=== PATIENT | male | born 1960 | race Two or more races ===

== ENCOUNTER 2019-03-10 23:28 | Inpatient (IN) | payer MEDICAID ==
[~2019-03-10] VITALS: Ht 162.6 cm; Wt 64.9 kg
[2019-03-11 01:05] VITALS: BP 140/92
--- NOTE | 2019-03-11 01:15 | NUR ---
ENVIRONMENTAL EDUCATOR ADMITTING NOTES RECEIVED PT VIA EMT DIRECT ADMIT FORM RUDI DALAL IN STABLE CONDITION WITH FAMILY AT BEDSIDE. PT A/O X3 IRISH SPEAKING. RESPIRATIONS EVEN AND UNLABORED WITH NO S/S OF ACUTE DISTRESS OR SOB NOTED. NO COMPLAINTS OF PAIN AT THIS TIME. ORIENTED PT TO UNIT, ROOM, AND STAFF. SAFETY MEASURES IN PLACE WITH BED IN LOWEST LOCKED POSITION WITH SIDE RAILS UP X2. CALL LIGHT WITHIN REACH. WILL CONTINUE TO MONITOR.
[2019-03-11] MEDS ORDERED: FURO20TA4 PO (01:48)
[2019-03-11] MEDS ORDERED: CARV6.252 PO (01:48)
[2019-03-11] MEDS ORDERED: ASPI-1152 PO (01:48)
[2019-03-11] MEDS ORDERED: DIGO250T PO (01:48)
[2019-03-11] MEDS ORDERED: METF-442 PO (01:48)
[2019-03-11] MEDS ORDERED: IV NS 0.9% 1,000 ML IV PRN (02:47)
[2019-03-11] MEDS ORDERED: MAG HYDROX/AL HYDROX/SIMETH 30 ML UDC PO PRN (03:00)
[2019-03-11] MEDS: ENOXAPARIN SODIUM 40 MG/0.4 ML DISP.SYRIN SQ SCH (03:00)
[2019-03-11] MEDS ORDERED: DEXTROSE 50%-WATER 50 ML DISP.SYRIN IV PRN (03:00)
[2019-03-11] MEDS ORDERED: HYDROCODONE/APAP 5/325MG 1 EACH TABLET PO PRN (03:00)
[2019-03-11] MEDS ORDERED: ONDANSETRON HCL/PF 4 MG/2 ML VIAL IVP PRN (03:00)
[2019-03-11] MEDS ORDERED: MAGNESIUM HYDROXIDE 30 ML UDC PO PRN (03:00)
[2019-03-11] MEDS ORDERED: ZOLPIDEM TARTRATE 5 MG TABLET PO PRN (03:00)
[2019-03-11] MEDS ORDERED: Z GUARD REMEDY 2 OZ OINT TP PRN (03:00)
[2019-03-11] MEDS ORDERED: ACETAMINOPHEN 325 MG TABLET PO PRN (03:00)
--- NOTE | 2019-03-11 03:30 | NUR ---
CANVAS WORKER NOTES PT REFUSED IV FLUIDS AT THIS TIME. PT STATES HE WOULD LIKE TO SEE THE [facility]CE[facility] TRANSPORTATION INTERMEDIARY BEFORE HE STARTS ON IV FLUIDS SINCE HE IS ALSO ON LASIX.
--- NOTE | 2019-03-11 04:02 | NUR ---
SOD CUTTER NOTES PT REFUSED LOVENOX MEDICATION. PT STATED HE WANTED TO SEE THE WAX POURER FIRST BEFORE HE TOOK THE MEDICATION.
[2019-03-11 04:11] VITALS: BP 99/64
[2019-03-11] MEDS: BLOOD SUGAR DIAGNOSTIC 1 EACH STRIP IN SCH ×4 (06:57→21:12)
--- NOTE | 2019-03-11 07:44 | NUR ---
[employer]UT[employer] ARCHITECT NOTES PT IN BED AWAKE AND ABLE TO MAKE NEEDS KNOWN. PT A/O X3 KOSOVAN SPEAKING. RESPIRATIONS EVEN AND UNLABORED WITH NO S/S OF ACUTE DISTRESS OR SOB NOTED THROUGHOUT SHIFT. NO COMPLAINTS OF PAIN AT THIS TIME. PT WITH LAC #20G PATENT AND INTACT. SAFETY MEASURES IN PLACE WITH BED IN LOWEST LOCKED POSITION WITH SIDE RAILS UP X2. CALL LIGHT WITHIN REACH. WILL ENDORSE TO ONCOMING NURSE FOR HARRISON.
--- NOTE | 2019-03-11 08:00 | NUR ---
MS RN RECEIVE DON BED, AWAKE,ALERT,ORIENTED X4,NOT IN ANY FORM OF DISTRESS, RESPIRATIONS EVEN AND UNLABORED,NO SOB NOTED, LUNGS ARE CLEAR,ABDOMEN SOFT,POSITIVE BOWEL SOUNDS,DENIES PAIN AT THIS TIME,ALL NEEDS ATTENDED.
--- NOTE | 2019-03-11 10:00 | NUR ---
MS OSWALD BREAKFAST SERVED,DUE MEDS GIVEN,TOLERATED WELL.
[2019-03-11 10:11] LABS: BASOPHILS % (AUTO) 0.6 % (0.0-2.0); EOSINOPHILS % (AUTO) 1.8 % (0.0-6.0); HEMATOCRIT 39 % (39-51); HEMOGLOBIN 13.2 g/dL (13.5-17.5); LYMPHOCYTES # (AUTO) 1.2 /CMM (0.8-4.8); LYMPHOCYTES % (AUTO) 15.3 % (20.0-44.0); MEAN CORPUSCULAR HGB CONC 34 g/dl (31.0-36.0); MEAN CORPUSCULAR VOLUME 93 fL (80-96); MONOCYTES # (AUTO) 0.8 /CMM (0.1-1.30); MONOCYTES % (AUTO) 10.9 % (2.0-12.0); NEUTROPHILS # (AUTO) 5.5 /CMM (1.8-8.9); NEUTROPHILS % (AUTO) 71.4 % (43.0-81.0); PLATELET COUNT (AUTO) 166 /CMM (150-450); RED BLOOD CELL COUNT(AUTO) 4.24 MIL/uL (4.5-6.0); WHITE BLOOD COUNT (AUTO) 7.7 K/uL (4.3-11.0)
[2019-03-11 10:12] LABS: CREATININE 1.2 mg/dL (0.6-1.3)
[2019-03-11] MEDS: ASPIRIN EC 81 MG TABLET.DR PO SCH (10:18)
[2019-03-11] MEDS: METFORMIN 500 MG TABLET PO SCH ×2 (10:18→18:00)
[2019-03-11] MEDS: PANTOPRAZOLE 40 MG TABLET.DR PO SCH (10:22)
[2019-03-11 10:28] LABS: BILIRUBIN,TOTAL 0.6 mg/dL (0.2-1.0); PHOSPHORUS 2.8 mg/dL (2.5-4.9)
[2019-03-11 10:29] LABS: ALBUMIN 3.9 g/dL (3.4-5.0); MAGNESIUM 1.7 mg/dL (1.8-2.4); TOTAL PROTEIN, SERUM 7.4 g/dL (6.4-8.2)
[2019-03-11 11:00] VITALS: BP 118/80
[2019-03-11] MEDS ORDERED: Magnesium 1GM/D5W 100ML PREMIX 100 ML IV ONE (11:00)
[2019-03-11] MEDS: INSULIN REGULAR, HUMAN 100 UNIT/ML 3 ML VIAL SQ PRN ×2 (12:20→21:14)
[2019-03-11 16:00] VITALS: BP 120/86
--- NOTE | 2019-03-11 17:00 | NUR ---
ms jimenez [id number] coverage given.
--- NOTE | 2019-03-11 19:00 | NUR ---
ms rn no distress noted.
--- NOTE | 2019-03-11 19:10 | NUR ---
SENIOR TALENT ACQUISITION SPECIALIST NOTE RECEIVED PT IN STABLE CONDITION A/O X3, HUNGARIAN SPEAKING. AT BEDSIDE WITH PATIENT. NO SIGNS OF SOB OR DISTRESS, NO C/O PAIN, N/V. TELE MONITOR: SB 56 WITH 1ST DEGREE AV BLOCK, AND BBB. IV IN L AC #[address] S/L. ALL CURRENT NEEDS ATTENDED TO. BED LOW, LOCKED, UPPER RAILS UP, AND CALL LIGHT WITHIN REACH. WILL CONT. TO MONITOR.
[2019-03-11 20:00] VITALS: BP 126/79
[2019-03-11] MEDS: CARVEDILOL 6.25 MG TABLET PO SCH (21:00)
[2019-03-11] MEDS: ATORVASTATIN 10 MG TABLET PO SCH (21:06)
[2019-03-12] VITALS (7 sets, daily range): BP systolic 104–121; BP diastolic 67–82
[2019-03-12] MEDS: ENOXAPARIN SODIUM 40 MG/0.4 ML DISP.SYRIN SQ SCH (02:12)
--- NOTE | 2019-03-12 02:12 | NUR ---
THERMOSTAT REPAIRER NOTE PT REFUSED 0300 DOSE OF LOVENOX. RISK AND BENEFITS MADE AWARE WITH VERBALIZATION OF UNDERSTANDING. WILL CONT. TO MONITOR.
[2019-03-12 06:24] LABS: BASOPHILS % (AUTO) 0.7 % (0.0-2.0); EOSINOPHILS % (AUTO) 2.8 % (0.0-6.0); HEMATOCRIT 39 % (39-51); HEMOGLOBIN 13.3 g/dL (13.5-17.5); LYMPHOCYTES # (AUTO) 1.7 /CMM (0.8-4.8); LYMPHOCYTES % (AUTO) 24.4 % (20.0-44.0); MEAN CORPUSCULAR HGB CONC 34 g/dl (31.0-36.0); MEAN CORPUSCULAR VOLUME 91 fL (80-96); MONOCYTES # (AUTO) 0.7 /CMM (0.1-1.30); NEUTROPHILS # (AUTO) 4.4 /CMM (1.8-8.9); NEUTROPHILS % (AUTO) 62.1 % (43.0-81.0); PLATELET COUNT (AUTO) 153 /CMM (150-450)
[2019-03-12] MEDS: INSULIN REGULAR, HUMAN 100 UNIT/ML 3 ML VIAL SQ PRN ×3 (06:31→21:50)
[2019-03-12] MEDS: BLOOD SUGAR DIAGNOSTIC 1 EACH STRIP IN SCH ×4 (06:31→21:47)
--- NOTE | 2019-03-12 06:40 | NUR ---
MACHINE I CUTTER NOTE PT IN STABLE CONDITION A/O X3, ETHIOPIAN SPEAKING. SON AT BEDSIDE WITH PATIENT. NO SIGNS OF SOB OR DISTRESS, NO C/O PAIN, N/V. TELE MONITOR: SR 62 WITH 1ST DEGREE AV BLOCK, AND BBB. IV IN L AC #[address] S/L. ALL CURRENT NEEDS ATTENDED TO. BED LOW, LOCKED, UPPER RAILS UP, AND CALL LIGHT WITHIN REACH. WILL CONT. TO MONITOR AND ENDORSE TO NEXT SHIFT FOR HARRISON.
[2019-03-12 06:56] LABS: CALCIUM, SERUM 9.1 mg/dL (8.5-10.1); MAGNESIUM 1.9 mg/dL (1.8-2.4); PHOSPHORUS 3.4 mg/dL (2.5-4.9); POTASSIUM 3.8 mmol/L (3.5-5.1)
[2019-03-12 07:01] LABS: THYROID STIMULATING HORMONE 2.326 uIU/mL (0.358-3.74)
[2019-03-12] MEDS: PANTOPRAZOLE 40 MG TABLET.DR PO SCH (07:30)
--- NOTE | 2019-03-12 07:30 | NUR ---
TELE/RN NOTE THE PATIENT IS RECEIVED IN BED AND AWAKE, FAMILY AT THE BEDSIDE. PATIENT ALERT AND ORIENTED X4. IN ROOM AIR AND DENIES SOB. RESPIRATION REGULAR AND UNLABORED. DENIES PAIN AT THIS TIME. THE PATIENT IN NO APPARENT DISTRESS. LAC G 20 PATENT AND NORMAL SALINE INFUSING AT 75ML/HR AND NO S/S INFILTRATION NOTED. BED LOW AND LOCKED. SIDE RAILS UP X3. CALL LIGHT WITHIN REACH. WILL CONTINUE TO MONITOR.
[2019-03-12] MEDS: METFORMIN 500 MG TABLET PO SCH ×2 (10:28→18:00)
[2019-03-12] MEDS: ASPIRIN EC 81 MG TABLET.DR PO SCH (10:28)
[2019-03-12] MEDS: CARVEDILOL 6.25 MG TABLET PO SCH ×2 (10:29→21:43)
[2019-03-12] MEDS: LISINOPRIL (10MG) 10 MG TABLET PO SCH (12:53)
--- NOTE | 2019-03-12 18:32 | NUR ---
TELE/RN NOTE THE PATIENT ALERT AND ORIENTED X3. IN ROOM AIR AND SATURATION IS AT 98%. DENIES SOB. RESPIRATION REGULAR AND UNLABORED. DENIES PAIN. EXTERNAL TELE BOX READING IS SR 69 WITH 1ST DEGREE AV BLOCK AND BBB. THE PATIENT IN STABLE CONDITION. WAITING FOR [facility] TO BI DELIVERED TODAY BEFORE 1999. LAC G 20 PATENT AND SALINE LOCKED. BED LOW AND LOCKED. SIDE RAILS UP X2. CALL LIGHT WITHIN REACH. WILL ENDORSE TO [employer]ICKSHAW DRIVER.
--- NOTE | 2019-03-12 19:30 | NUR ---
RECEIVED PATIENT IN BED AWAKE. AO X 3, ABLE TO MAKE NEEDS KNOWN. NO ACUTE DISTRESS NOTED. DENIES ANY PAIN AT THIS TIME. IV LINE PATENT, INTACT; FLUSHED. SAFETY REMINDERS GIVEN. ON LOW BED WITH BILATERAL UPPER SIDE RAILS UP. CALL CONWAY WITHIN EASY REACH. FAMILY AT BEDSIDE. PATIENT AND FAMILY GETTING TRAINED BY THIRD [employer] ROUTE DRIVER ON NEW LIFEVEST.
[2019-03-12] MEDS: ATORVASTATIN 10 MG TABLET PO SCH (21:42)
[2019-03-13] VITALS: BP 90/53
--- NOTE | 2019-03-13 | NUR ---
PATIENT SLEEPING WELL. SONS AT BEDSIDE. NO SYMPTOMS OF HYPER/HYPOGLYCEMIA.
[2019-03-13] MEDS: ENOXAPARIN SODIUM 40 MG/0.4 ML DISP.SYRIN SQ SCH (03:00)
[2019-03-13 04:00] VITALS: BP 105/67
--- NOTE | 2019-03-13 06:00 | NUR ---
PATIENT ASLEEP, EASILY AROUSABLE. RESPIRATIONS EVEN. NO SIGNS OF PAIN NOTED. LIFEVEST ON PATIENT. NO SYNCOPAL EPISODE THIS SHIFT. NO SYMPTOMS OF HYPER/HYPOGLYCEMIA. TELE READING SINUS ELIANE WITH FIRST DEGREE AV BLOCK AND BBB. DUE MEDS GIVEN WITH NO ASE NOTED. NEEDS ATTENDED. SAFETY PRECAUTIONS AND COMFORT MEASURES IN PLACE. WILL GIVE REPORT TO DAY SHIFT FOR CONTINUITY OF CARE.
[2019-03-13] MEDS: BLOOD SUGAR DIAGNOSTIC 1 EACH STRIP IN SCH ×4 (06:40→21:18)
[2019-03-13] MEDS: INSULIN REGULAR, HUMAN 100 UNIT/ML 3 ML VIAL SQ PRN ×3 (06:42→21:17)
[2019-03-13 06:56] LABS: BASOPHILS % (AUTO) 0.7 % (0.0-2.0); EOSINOPHILS % (AUTO) 3.3 % (0.0-6.0); HEMATOCRIT 40 % (39-51); HEMOGLOBIN 13.4 g/dL (13.5-17.5); LYMPHOCYTES # (AUTO) 1.5 /CMM (0.8-4.8); LYMPHOCYTES % (AUTO) 22.4 % (20.0-44.0); MEAN CORPUSCULAR HGB CONC 33 g/dl (31.0-36.0); MEAN CORPUSCULAR VOLUME 92 fL (80-96); MONOCYTES # (AUTO) 0.7 /CMM (0.1-1.30); MONOCYTES % (AUTO) 10.7 % (2.0-12.0); NEUTROPHILS # (AUTO) 4.2 /CMM (1.8-8.9); NEUTROPHILS % (AUTO) 62.9 % (43.0-81.0); PLATELET COUNT (AUTO) 156 /CMM (150-450); RED BLOOD CELL COUNT(AUTO) 4.35 MIL/uL (4.5-6.0); WHITE BLOOD COUNT (AUTO) 6.7 K/uL (4.3-11.0)
[2019-03-13 07:20] LABS: CALCIUM, SERUM 8.8 mg/dL (8.5-10.1); CREATININE 0.9 mg/dL (0.6-1.3)
[2019-03-13 08:00] VITALS: BP 106/68
--- NOTE | 2019-03-13 08:00 | NUR ---
CREAM DIPPER AM NOTES PATIENT AWAKE.RESPIRATIONS EVEN. NO SIGNS OF PAIN NOTED. LIFEVEST ON PATIENT. NO SYNCOPAL EPISODE THIS SHIFT. NO SYMPTOMS OF HYPER/HYPOGLYCEMIA. TELE READING SINUS ELIANE WITH FIRST DEGREE AV BLOCK AND BBB. FAMILY AT THE BEDSIDE.CALL LIGHT WITHIN REACH. SAFETY PRECAUTIONS AND COMFORT MEASURES IN PLACE.
[2019-03-13] MEDS ORDERED: ATOR10TA PO (08:46)
[2019-03-13] MEDS ORDERED: LISI-605 PO (08:46)
[2019-03-13] MEDS: CARVEDILOL 3.125 MG TABLET PO SCH ×2 (09:00→21:15)
[2019-03-13] MEDS: LISINOPRIL (10MG) 10 MG TABLET PO SCH (09:00)
[2019-03-13] MEDS: ASPIRIN EC 81 MG TABLET.DR PO SCH (09:46)
[2019-03-13] MEDS: METFORMIN 500 MG TABLET PO SCH ×2 (09:46→16:36)
[2019-03-13] MEDS: PANTOPRAZOLE 40 MG TABLET.DR PO SCH (09:47)
[2019-03-13] MEDS ORDERED: CARV3.122 PO (12:03)
[2019-03-13 16:00] VITALS: BP 123/82
--- NOTE | 2019-03-13 18:07 | NUR ---
PT WAS SEEN BY DR ALVAREZ(FARM FACILITY MANAGER) AND DISCUSSED WITH FAMILY FOR MORE THAN AN HOUR IN THE PT'S ROOM.
--- NOTE | 2019-03-13 19:04 | NUR ---
PT WAS SEEN BY MEDICAL CODING MANAGER AND DISCUSSED WITH THE FAMILY ABOUT THE PLAN FOR MORE THAN AN HOUR AND ARE STILL WITH THE PT/FAMILY IN THE ROOM.
--- NOTE | 2019-03-13 19:30 | NUR ---
RECEIVED PATIENT IN BED AWAKE. AO X 3, ABLE TO MAKE NEEDS KNOWN. NO ACUTE DISTRESS NOTED. DENIES ANY PAIN AT THIS TIME. IV LINE PATENT, INTACT; FLUSHED. SAFETY REMINDERS GIVEN. ON LOW BED WITH BILATERAL UPPER SIDE RAILS UP. CALL CONWAY WITHIN EASY REACH. FAMILY AT BEDSIDE. WILL CONTINUE TO MONITOR.
[2019-03-13 20:00] VITALS: BP 120/78
--- NOTE | 2019-03-13 20:00 | NUR ---
TELE READING SINUS RHYTHM WITH FIRST DEGREE AV BLOCK WITH BBB HR 68.
[2019-03-13] MEDS: ATORVASTATIN 10 MG TABLET PO SCH (21:14)
--- NOTE | 2019-03-13 21:30 | NUR ---
PER PATIENT, HE STILL WOULD REFUSED LOVENOX, EVEN IF SCHEDULED TO BE GIVEN BEFORE 0300. PATIENT STATED THAT HE KNOWS THAT LOVENOX IS HIGHLY RECOMMENDED TO PREVENT STROKE. DAUGHTER AND GRANDDAUGHTER AT BEDSIDE TO TRANSLATE. PATIENT STRONGLY REFUSED LOVENOX.
[2019-03-14] VITALS: BP 125/82
--- NOTE | 2019-03-14 02:40 | NUR ---
PATIENT WALKING UP AND DOWN HALLWAY WITH STEADY GAIT. NOTED TO HAVE NO LIFEVEST. PATIENT ENCOURAGED TO WEAR LIFEVEST. PATIENT REFUSED. TELE READING SR WITH FIRST DEGREE AV BLOCK. WILL CONTINUE TO ENCOURAGE AND MONITOR PATIENT.
[2019-03-14] MEDS: ENOXAPARIN SODIUM 40 MG/0.4 ML DISP.SYRIN SQ SCH (03:00)
--- NOTE | 2019-03-14 03:19 | NUR ---
PATIENT'S SONS CAME BACK TO HOSPITAL AT THIS TIME. THEY STATED THAT THEY BROUGHT LIFEVEST HOME.
[2019-03-14 04:00] VITALS: BP 101/65
--- NOTE | 2019-03-14 06:00 | NUR ---
PATIENT ASLEEP, EASILY AROUSABLE. RESPIRATIONS EVEN. NO SIGNS OF PAIN NOTED. DUE MEDS GIVEN WITH NO ASE NOTED. NEEDS ATTENDED. SAFETY PRECAUTIONS AND COMFORT MEASURES IN PLACE. WILL GIVE REPORT TO DAY SHIFT FOR CONTINUITY OF CARE.
[2019-03-14] MEDS: BLOOD SUGAR DIAGNOSTIC 1 EACH STRIP IN SCH (06:35)
[2019-03-14] MEDS: INSULIN REGULAR, HUMAN 100 UNIT/ML 3 ML VIAL SQ PRN (06:39)
--- NOTE | 2019-03-14 07:52 | NUR ---
MS RN OPENING NOTES RECEIVED PT LAYING IN BED, AWAKE, ALERT AND RESPONSIVE. TWO SONS AT BEDSIDE. RESPIRATIONS ARE EVEN AND UNLABORED, NOT IN ANY ACUTE DISTRESS NOTED. DENIES ANY PAIN, SOB, N/V. IV SITE TO LAC INTACT, NO INFILTRATION NOTED. DRESSING KEPT CLEAN AND DRY. SAFETY MEASURES ARE IN PLACE. INSTRUCTED PT TO USE CALL LIGHT WHEN ASSISTANCE IS NEEDED, CALL LIGHT IS LEFT WITHIN REACH. WILL MONITOR THROUGHOUT SHIFT FOR CONTINUITY OF CARE.
[2019-03-14 08:00] VITALS: BP 135/90
--- NOTE | 2019-03-14 08:00 | NUR ---
MS RN NOTES-- PT WAS SEEN BY DR. CALABRESE STATING HE SPOKE W/ DR. RACHEL MADRIGAL FROM [facility] AND ACCEPTED THE PATIENT. AWAITING BED PER CM.
[2019-03-14] MEDS: ASPIRIN EC 81 MG TABLET.DR PO SCH (08:57)
[2019-03-14] MEDS: METFORMIN 500 MG TABLET PO SCH (08:57)
[2019-03-14 08:58] VITALS: BP 135/90
[2019-03-14] MEDS: CARVEDILOL 3.125 MG TABLET PO SCH (08:58)
[2019-03-14] MEDS: LISINOPRIL (10MG) 10 MG TABLET PO SCH (08:58)
[2019-03-14] MEDS: PANTOPRAZOLE 40 MG TABLET.DR PO SCH (08:59)
--- NOTE | 2019-03-14 10:00 | NUR ---
MS RN NOTES-- PT WAS SEEN BY DR. ORTIZ W/ ORDERS TO PROCEED TO TRANSFER TO [facility].
--- NOTE | 2019-03-14 10:30 | NUR ---
MS RN NOTES-- NOTIFIED FAMILY AT BEDSIDE THAT PT WILL BE TRANSFERRED TO [facility], P/U TIME AT 1100. FAMILY AND PT AGREED.
--- NOTE | 2019-03-14 11:00 | NUR ---
MS TREATMENT SUPERVISOR NOTES PT TRANSFERRED TO [facility] FOR FURTHER EVALUATION AND WORK UP PER DR. CALABRESE WHO SPOKE WITH DR. MADRIGAL WHO ACCEPTED THE PT. PT IS A/O X4, AFEBRILE. ROMANIAN SPEAKING. RESPIRATIONS ARE EVEN AND UNLABORED, NOT IN ANY ACUTE DISTRESS NOTED. PT DENIES CHEST PAIN, DIZZINESS, SOB, N/V. IV ACCESS KEPT IN PLACE TO [facility] PT IS TRANSFERRING TO ACUTE CARE. ABDOMEN IS SOFT AND NONDISTENDED, BOWEL SOUNDS ARE PRESENT IN ALL 4 QUADRANTS UPON AUSCULTATION. DENIES ANY BLADDER DISCOMFORT. SKIN IS INTACT, KEPT CLEAN AND DRY. NO SKIN ISSUES NOTED. PT IS AMBULATORY. TELE BOX AND LEADS REMOVED. BEDSIDE ENDORSEMENT GIVEN TO EMT PERSONNEL AND WAS PLACED ON THEIR HEART MONITOR. CALLED [facility], SPOKE W/ CESAR FOR REPORT. PT WILL BE GOING TO RM [id number]. ALL BELONGINGS SENT WITH PT AND FAMILY. PT LEFT VIA GURNEY IN STABLE CONDITION ACCOMPANIED BY 2 EMT PERSONNEL.
== END 2019-03-14 11:15 | disposition short-term general hospital (02) | DRG 190 ==
LOC: TELE 03-11 00:56 → MED 03-14 09:55
PROVIDERS: ADMIT Family Medicine; ATTEND Family Medicine
DX: I21.4 Non-ST elevation (NSTEMI) myocardial infarction (principal); I50.23 Acute on chronic systolic (congestive) heart failure; I42.9 Cardiomyopathy, unspecified; E87.5 Hyperkalemia; E11.9 Type 2 diabetes mellitus without complications; E86.9 Volume depletion, unspecified; I11.0 Hypertensive heart disease with heart failure; I25.10 Atherosclerotic heart disease of native coronary artery without angina pectoris; R32 Unspecified urinary incontinence; I25.2 Old myocardial infarction; I44.7 Left bundle-branch block, unspecified; Z79.82 Long term (current) use of aspirin; Z79.899 Other long term (current) drug therapy; Z95.810 Presence of automatic (implantable) cardiac defibrillator; Z87.891 Personal history of nicotine dependence; Z83.3 Family history of diabetes mellitus; Z82.49 Family history of ischemic heart disease and other diseases of the circulatory system; I44.0 Atrioventricular block, first degree; R79.89 Other specified abnormal findings of blood chemistry
CPT/HCPCS: 36415; 71045-TC; 80048-TC; 80053-TC; 80061-TC; 82962-TC; 83735-TC; 83880; 84100-TC; 84443-TC; 84484-TC; 85025-TC; 85610-TC; 85730-TC; 87081-TC; 93307-TC; 93880-TC; 97116-TC; 97530-TC; G0378; J1650; J1815; J3475; J7030